=== PATIENT | male | born 1970 | race Caucasian/White ===

== ENCOUNTER 2019-08-28 09:05 | Day surgery (SDC) | payer OTHER ==
[~2019-08-28] VITALS: Ht 180.3 cm; Wt 89.0 kg
[~2019-08-28 09:05] MED LIST: OMEPRAZOLE20 MG PO
--- NOTE | 2019-08-28 09:38 | NUR ---
08/28/19 0938 Anmol Weston 1ST IV ATTEMPT IN RIGHT HAND LIDOCAINE RESTRICTED THE VEIN AND CATH WOULD NOT ADVANCE-CMT
== END 2019-08-28 11:28 | disposition home or self-care (01) ==
LOC: ORSCSDS 09:05
PROVIDERS: Student in an Organized Health Care Education/Training Program
PROC: 0DBE8ZX Excision of Large Intestine, Via Natural or Artificial Opening Endoscopic, Diagnostic (ICD-10-PCS; principal; 2019-08-28 10:30)
PROC: 0DBH8ZX Excision of Cecum, Via Natural or Artificial Opening Endoscopic, Diagnostic (ICD-10-PCS; principal; 2019-08-28 10:30)
DX: R19.7 Diarrhea, unspecified (principal); K92.1 Melena; R10.9 Unspecified abdominal pain; D12.0 Benign neoplasm of cecum; K21.9 Gastro-esophageal reflux disease without esophagitis; Z79.899 Other long term (current) drug therapy
CPT/HCPCS: 88305; J2704; J7120